=== PATIENT | female | born 1945 | race Caucasian/White ===

== ENCOUNTER 2019-10-16 11:51 | Day surgery (SDC) | payer MEDICARE, BC ==
[~2019-10-16] VITALS: Ht 144.8 cm; Wt 66.4 kg
[2019-10-16 12:36] VITALS: BP 139/81
[2019-10-16] MEDS ORDERED: QUET50TA5 PO (12:45)
[2019-10-16] MEDS ORDERED: dandelion root PO (12:45)
[2019-10-16] MEDS ORDERED: KRIL1CAP7 PO (12:45)
[2019-10-16] MEDS ORDERED: ACET1TAB64 PO (12:45)
[2019-10-16] MEDS ORDERED: TIOT18CA INH (12:45)
[2019-10-16] MEDS ORDERED: MELA10TA PO (12:45)
[2019-10-16] MEDS ORDERED: MAGN400C PO (12:45)
[2019-10-16] MEDS ORDERED: CEPH-368 PO (12:45)
[2019-10-16] MEDS ORDERED: DESV50TA PO (12:45)
[2019-10-16] MEDS ORDERED: PLEASE ENTER ALLERGIES MC SCH (13:00)
[2019-10-16] MEDS ORDERED: CEFAZOLIN PMX 1GM/50ML 50 ML IV ONE (13:00)
[2019-10-16] MEDS ORDERED: SODIUM CHLORIDE 0.9% 1,000 ML IV SCH (13:00)
[2019-10-16] MEDS ORDERED: FENTANYL PF 100 MCG/2ML ONE (13:40)
[2019-10-16] MEDS ORDERED: FLUMAZENIL 0.1 MG/1 ML, 5ML ONE (13:40)
[2019-10-16] MEDS ORDERED: NALOXONE 1 MG/ML, 2ML ONE (13:40)
[2019-10-16] MEDS ORDERED: MIDAZOLAM 1 MG/ML, 5ML ONE (13:40)
[2019-10-16] MEDS ORDERED: LIDOCAINE 1%, 20ML ONE (13:59)
[2019-10-16] MEDS ORDERED: LIDOCAINE 1%, 10ML ONE (14:00)
== END 2019-10-16 16:10 | disposition home or self-care (01) ==
LOC: OUT 11:51
PROVIDERS: ATTEND Internal Medicine Hematology & Oncology
DX: Z45.2 Encounter for adjustment and management of vascular access device (principal); C50.212 Malignant neoplasm of upper-inner quadrant of left female breast; D70.1 Agranulocytosis secondary to cancer chemotherapy; F31.9 Bipolar disorder, unspecified; J44.9 Chronic obstructive pulmonary disease, unspecified; K21.9 Gastro-esophageal reflux disease without esophagitis; Z90.13 Acquired absence of bilateral breasts and nipples; Z88.1 Allergy status to other antibiotic agents; Z88.8 Allergy status to other drugs, medicaments and biological substances; Z87.01 Personal history of pneumonia (recurrent); Z96.643 Presence of artificial hip joint, bilateral; Z98.42 Cataract extraction status, left eye; Z98.41 Cataract extraction status, right eye; Z98.51 Tubal ligation status; Z96.1 Presence of intraocular lens
CPT/HCPCS: 36561; 77001; 99156; 99157; C1788; J0690; J1642; J2250; J3010; J7030; J2310

== ENCOUNTER → 2020-04-05 | Outpatient (CLI) | payer MEDICARE, BC ==
[~2020-04-05] MED LIST: ACET1TAB64 PO; CEPH-368 PO; DESV50TA PO; KRIL1CAP7 PO; MAGN400C PO; MELA10TA PO; QUET50TA5 PO; TIOT18CA INH; dandelion root PO
== END | disposition home or self-care (01) ==
LOC: PETCFH 07:27
PROVIDERS: ATTEND Internal Medicine Hematology & Oncology
DX: C50.212 Malignant neoplasm of upper-inner quadrant of left female breast (principal); R91.8 Other nonspecific abnormal finding of lung field
CPT/HCPCS: 78815; A9552